=== PATIENT | female | born 1960 ===

== ENCOUNTER 2017-05-01 18:26 | Emergency (ER) | payer BC ==
--- NOTE | 2017-05-01 19:21 | C.PDOC ---
History Of Present Illness Patient presents to the ER with a complaint of high blood pressure she states was 170/100 at home. Patient states she is in the process of moving and cleaning the house and has not been taking her antianxiety medication in the morning as she usually does. Denies chest pain, palpitations, vision changes, dizziness, or nausea. Time Seen by Provider: 05/01/17 19:19 Chief Complaint (Nursing): High Blood Pressure History Per: Patient History/Exam Limitations: no limitations Onset/Duration Of Symptoms: Hrs Current Symptoms Are (Timing): Still Present Associated Symptoms: denies: Chest Pain, Dyspnea, Dizziness, Blurred Vision, Headache Quality Of Symptoms: Asymptomatic Severity: None Pain Scale Rating Of: 0 Exacerbating Factor(s): Pos: Recently Missed Doses Of Medication Recent travel outside of the [place]: No Past Medical History Reviewed: Historical Data, Nursing Documentation, Vital Signs Vital Signs: Last Vital Signs Temp 98.6 F 05/01/17 19:10 Pulse 89 05/01/17 19:10 Resp 20 05/01/17 19:10 BP 144/87 05/01/17 20:23 Pulse Ox 100 05/01/17 19:36 - Medical History PMH: Anxiety, Depression, HTN Surgical History: No Surg Hx Family History: States: Unknown Family Hx - Social History Hx Alcohol Use: No Hx Substance Use: No - Immunization History Hx Tetanus Toxoid Vaccination: No Hx Influenza Vaccination: No Hx Pneumococcal Vaccination: No Review Of Systems Eyes: Negative for: Vision Change Cardiovascular: Negative for: Chest Pain, Palpitations Gastrointestinal: Negative for: Nausea Neurological: Negative for: Dizziness Physical Exam - Physical Exam Appears: Non-toxic, Other (slightly anxious) Skin: Warm, Dry Oral Mucosa: Moist Chest: Symmetrical, No Tenderness Cardiovascular: Rhythm Regular, No Murmur Respiratory: No Rales, No Rhonchi, No Wheezing Gastrointestinal/Abdominal: Soft, No Tenderness Neurological/Psych: Oriented x3 ED Course And Treatment O2 Sat by Pulse Oximetry: 100 (Room air) Pulse Ox Interpretation: Normal Progress Note: Ativan administered. Reevaluation Time: 20:27 Reassessment Condition: Improved Medical Decision Making Medical Decision Making: Upon provider reevaluation patient is feeling better, is medically stable, and requires no further treatment in the ED at this time. Patient will be discharged home . Counseling was provided and all questions were answered regarding diagnosis and need for follow up with dr alford. There is agreement to discharge plan. Return if symptoms persist or worsen. Disposition Counseled Patient/Family Regarding: Studies Performed, Diagnosis, Need For Followup - Disposition Referrals: Dylan Alford Jr., MD [Medical Doctor] - Disposition: HOME/ ROUTINE Disposition Time: 19:21 Condition: FAIR Instructions: Anxiety (ED), Hypertension (DC) Print Language: OMANI - Clinical Impression Clinical Impression: Anxiety, Hypertension - Scribe Statement The provider has reviewed the documentation as recorded by the Scribbarbara Chang All medical record entries made by the Karleneibbarbara were at my direction and personally dictated by me. I have reviewed the chart and agree that the record accurately reflects my personal performance of the history, physical exam, medical decision making, and the department course for this patient. I have also personally directed, reviewed, and agree with the discharge instructions and disposition.
[2017-05-01 20:23] VITALS: BP 144/87
[2017-05-01 20:33] VITALS: PULSE 80; RESP 17; TEMP 98.4; O2SAT 99
== END 2017-05-01 20:33 | disposition home or self-care (01) ==
LOC: C.ER 18:26
DX: F41.9 Anxiety disorder, unspecified (principal); I10 Essential (primary) hypertension

== ENCOUNTER 2018-02-17 08:51 | Emergency (ER) | payer BC ==
[2018-02-17 08:56] VITALS: BP 137/90; PULSE 71; RESP 20; TEMP 97.6; O2SAT 98
[2018-02-17] MEDS ORDERED: Bacitracin 500 Units/gm Oint Foilpak UD TOP ONE (09:14)
--- NOTE | 2018-02-17 09:18 | C.PDOC ---
History Of Present Illness Patient presents to ED for wound check and packing removal, is s/p I&D of right axilla 2 days ago in our ED. Patient states she has been compliant with antibioitics given to her, and that the wound is less painful and appears to be improving. She denies fever. Time Seen by Provider: 02/17/18 09:05 Chief Complaint (Nursing): Wound Check History Per: Patient History/Exam Limitations: no limitations Onset/Duration Of Symptoms: Days (2) Current Symptoms Are (Timing): Better Severity: Mild Past Medical History Reviewed: Historical Data, Nursing Documentation, Vital Signs Vital Signs: Last Vital Signs Temp 97.6 F 02/17/18 08:54 Pulse 71 02/17/18 08:54 Resp 20 02/17/18 08:54 BP 137/90 02/17/18 08:54 Pulse Ox 98 02/17/18 09:27 - Medical History PMH: Anxiety, Depression, HTN Family History: States: No Known Family Hx - Social History Hx Alcohol Use: No Hx Substance Use: No - Immunization History Hx Tetanus Toxoid Vaccination: No Hx Influenza Vaccination: No Hx Pneumococcal Vaccination: No Review Of Systems Constitutional: Negative for: Fever, Chills Cardiovascular: Negative for: Chest Pain Respiratory: Negative for: Shortness of Breath Skin: Positive for: Other (right axillary abscess ) Neurological: Negative for: Weakness Physical Exam - Physical Exam Appears: Well, Non-toxic, No Acute Distress Skin: Other (right axilla - approx 4cm area of induration with central incision , packing intact, no fluctuance or purulent discharge able to be expressed ) Oral Mucosa: Moist Cardiovascular: Rhythm Regular Respiratory: Normal Breath Sounds, No Rales, No Rhonchi, No Wheezing Extremity: Normal ROM, No Deformity, No Swelling Pulses: Left Radial: Normal, Right Radial: Normal Neurological/Psych: Oriented x3 ED Course And Treatment O2 Sat by Pulse Oximetry: 98 (RA) Pulse Ox Interpretation: Normal Progress Note: Packing removed by me, patient tolerated well. Area covered with bacitracin and gauze dressing by nurse. Prior visit reviewed - culture grew MRSA that is resistant to tetracycline (patient given doxycycline). Will change antibiotic to Bactrim instead. Patient instructed to use new antibiotic and to follow up with her PMD in 1-2 days. She understands she should return to ED if she has any concerning or worsening symptoms. Reassessment Condition: Improved Disposition Counseled Patient/Family Regarding: Studies Performed, Diagnosis, Need For Followup - Disposition Referrals: Dylan Sánchez Jr., MD [Medical Doctor] - Disposition: HOME/ ROUTINE Disposition Time: 09:25 Condition: STABLE Additional Instructions: FOLLOW UP WITH YOUR DOCTOR/CLINIC IN 1-2 DAYS USE NEW ANTIBIOTIC INSTEAD OF DOXYCYCLINE RETURN TO EMERGENCY ROOM IF SYMPTOMS WORSEN SEGUIMIENTO CON BAEZ MDICO / CLNICA EN 1-2 KONG USE NUEVO ANTIBITICO EN LUGAR DE DOXYCYCLINE REGRESE AL AURA DE EMERGENCIA SI LOS SNTOMAS EMPEORAN Prescriptions: Sulfamethoxazole/Trimethoprim [Bactrim DS 800 mg-160 mg] 1 tab PO BID #14 tab Instructions: Wound Care (DC) Forms: [employer] (Thai) Print Language: YI - Clinical Impression Clinical Impression: Wound check, abscess, Abscess packing removal
[2018-02-17] MEDS ORDERED: Tmp-Smz 800 mg-160 mg DS Tab PO STA (09:22)
[2018-02-17] MEDS ORDERED: Bacitracin 500 Units/gm Oint Foilpak UD ONE (09:22)
[2018-02-17] MEDS ORDERED: Tmp-Smz 800 mg-160 mg DS Tab ONE (09:32)
== END 2018-02-17 09:39 | disposition home or self-care (01) ==
LOC: C.ER 08:51
DX: Z51.89 Encounter for other specified aftercare (principal); Z48.01 Encounter for change or removal of surgical wound dressing